=== PATIENT | male | born 1960 ===

== ENCOUNTER 2022-12-23 02:43 | Emergency (ER) | payer MEDICAID ==
[~2022-12-23] VITALS: Ht 170.2 cm; Wt 79.4 kg
[2022-12-23] MEDS ORDERED: CLIN300C8 PO (03:23)
[2022-12-23] MEDS ORDERED: ACET-1158 PO (03:23)
[2022-12-23] MEDS ORDERED: CEPH-510 PO (03:23)
[2022-12-23] MEDS ORDERED: cefTRIAXone SOD 1,000 MG VL IM ONE (03:30)
[2022-12-23 03:40] VITALS: BP 142/91
== END 2022-12-23 03:50 | disposition home or self-care (01) ==
LOC: ER 02:43
DX: L03.011 Cellulitis of right finger (principal); Z88.6 Allergy status to analgesic agent; Z88.1 Allergy status to other antibiotic agents
CPT/HCPCS: 96372; 99283; J0696

== ENCOUNTER 2025-03-03 16:00 | Emergency (ER) | payer MEDICAID, SELFPAY ==
[~2025-03-03] VITALS: Ht 167.6 cm; Wt 72.7 kg
[~2025-03-03 16:00] MED LIST: ACET500T58 PO; CEPH-510 PO; CLIN1CAP70 PO
[2025-03-03 16:49] LABS: Hematocrit 40.7 % (41.0-53.0); Hemoglobin 14.0 g/dL (13.5-17.5); Mean Corpuscular Hemoglobin 31.1 pg (28.0-32.0); Mean Corpuscular Volume 90.3 fL (80.0-100.0); Nucleated Red Blood Cells % 0.2 %
[2025-03-03 17:00] LABS: Alanine Aminotransferase 12 U/L (7-40); Alkaline Phosphatase 59 U/L (46-116); Calcium 9.0 mg/dL (8.7-10.4)
[2025-03-03 17:01] LABS: Albumin 4.2 g/dL (3.2-4.8); Anion Gap 9 (5-15); BUN/Creatinine Ratio 13.8 (10.0-20.0); Bilirubin, Total 0.6 mg/dL (0.2-1.0); Blood Urea Nitrogen 13 mg/dL (9-23); Carbon Dioxide 24 mmol/L (20-31); Glucose 87 mg/dL (74-106); Lipase 43 U/L (12-53); Potassium 4.1 mmol/L (3.5-5.1); Sodium 140 mmol/L (136-145); Total Protein 6.2 g/dL (5.7-8.2)
[2025-03-03 17:02] LABS: Chloride 107 mmol/L (98-107)
[2025-03-03] MEDS: ONDANSETRON HCL 4 MG/2 ML VIAL IV ONE (18:25)
[2025-03-03] MEDS: SODIUM CHLORIDE 0.9% 1,000 ML IV ONE (18:26)
[2025-03-03 20:54] LABS: Urine Protein, UAD TRACE (Negative)
--- NOTE | 2025-03-03 21:10 | ED.PDOC ---
History of Present Illness HPI Comments This patient is a 64-year-old male who was brought in by ambulance due to concerns of overdose event that occurred last night. Patient states that he usually takes trazodone, but wanted to get a good night sleep and therefore, took 20 pills. Patient arrives slightly confused with a general ill feeling, but patient does not look toxic or poisoned. Vital signs were stable on arrival. Chief Complaint: Overdose Time Seen by MD: 16:00 Primary Care Provider: DR. CHUNG Reviewed Notes: Nurses Notes, Transitional Care Liaison Notes Allergies: Coded Allergies: NO KNOWN ALLERGIES (Unverified , 12/23/22) Home Meds Active Scripts Acetaminophen (Acetaminophen) 500 Mg Tab, 500 MG PO QIDP, #30 TAB 0 Refills Prov:ABIODUN DUBON 12/23/22 Clindamycin Hcl (Clindamycin Hcl) 300 Mg Cap, 1 CAP PO TID for 7 Days, #21 CAP 0 Refills Prov:ABIODUN DUBON 12/23/22 Cephalexin ( Keflex 500) 500 Mg Cap, 1 CAP PO BID for 7 Days, #14 CAP 0 Refills Prov:ABIODUN DUBON 12/23/22 Information Source: Patient, Emergency Med Personnel Mode of Arrival: EMS Severity: Mild Timing: Hours Duration: Since onset Prehospital treatment: None Past Medical History PAST MEDICAL HISTORY: Anxiety, Thyroid Surgical History: Denies all surgeries Family History Family History: Unknown Social History Smoker: Non-Smoker Alcohol: Denies ETOH Use Drugs: Denies Drug Use Lives In: Home Constitutional: reports: others (Nonspecific general unease); denies: chills, diaphoresis, fatigue, fever, malaise, sweats, weakness EENTM: denies: blurred vision, double vision, ear bleeding, ear discharge, ear drainage, ear pain, ear ringing, eye pain, eye redness, hearing loss, mouth pain, mouth swelling, nasal discharge, nose bleeding, nose congestion, nose pain, photophobia, tearing, throat pain, throat swelling, voice changes, others Respiratory: denies: cough, hemoptysis, orthopnea, SOB at rest, shortness of breath, SOB with excertion, stridor, wheezing, others Cardiovascular: denies: chest pain, dizzy spells, diaphoresis, Dyspnea on exertion, edema, irregular heart beat, left arm pain, lightheadedness, palpitations, PND, syncope, others Gastrointestinal: denies: abdomen distended, abdominal pain, blood streaked bowels, constipated, diarrhea, dysphagia, difficulty swallowing, hematemesis, melena, nausea, poor appetite, poor fluid intake, rectal bleeding, rectal pain, vomiting, others Genitourinary: denies: burning, dysuria, flank pain, frequency, hematuria, incontinence, penile discharge, penile sore, pain, testicle pain, testicle swelling, urgency, others Neurological: denies: dizziness, fainting, headache, left sided numbness, left sided weakness, numbness, paresthesia, pre-existing deficit, right sided numbness, right sided weakness, seizure, speech problems, tingling, tremors, weakness, others Musculoskeletal: denies: back pain, gout, joint pain, joint swelling, muscle pain, muscle stiffness, neck pain, others Integumetry: denies: bruises, change in color, change in hair/nails, dryness, laceration, lesions, lumps, rash, wounds, others Allergic/Immunocompromised: denies: Difficulty Healing, Frequent Infections, Hives, Itching, others Hematologic/Lymphatic: denies: anemia, blood clots, easy bleeding, easy bruising, swollen glands, others Endocrine: denies: excessive hunger, excessive sweating, excessive thirst, excessive urination, flushing, intolerance to cold, intolerance to heat, unexplained weight gain, unexplained weight loss, others Psychiatric: denies: anxiety, bipolar disorder, depression, hopeless, panic disorder, schizophrenia, sleepless, suicidal, others Physical Exam General Appearance: Mild Distress (Patient states general mild a knees. Patient does not look toxic. Patient does not appear altered.), Normal HEENT: Normal ENT Inspection, Pharynx Normal, TMs Normal Neck: Full Range of Motion, Non-Tender, Normal, Normal Inspection Respiratory: Chest Non-Tender, Lungs Clear, No Accessory Muscle Use, No Respiratory Distress, Normal Breath Sounds Cardiovascular: No Edema, No JVD, No Murmur, No Gallop, Normal Peripheral Pulses, Regular Rate/Rhythm Breast Exam: Deferred Gastrointestinal: No Organomegaly, Non Tender, No Pulsatile Mass, Normal Bowel Sounds, Soft Genitalia: Deferred Pelvic: Deferred Rectal: Deferred Extremities: No calf tenderness, Normal capillary refill, Normal inspection, Normal range of motion, Non-tender, No pedal edema Neurologic: Alert, No Motor Deficits, Normal Affect, Normal Mood, No Sensory Deficits Cerebellar Function: Normal Reflexes: Normal Skin: Dry, Normal Color, Warm Lymphatic: No Adenopathy Was a procedure done? Was a procedure done?: No Differential Dx Considerations may include: Accidental prescription drug overdose X-Ray, Labs, Meds, VS Vital Signs Date Time Temp Pulse Resp B/P (MAP) Pulse Ox O2 Delivery O2 Flow Rate FiO2 03/03/25 16:13 72 03/03/25 16:04 98.4 76 16 117/71 97 98.4 Lab Test 03/03/25 20:10 03/03/25 16:24 Range/Units Urine Color Yellow Yellow Urine Clarity Clear Clear Urine pH 6.0 5.0-9.0 Urine Specific [place] 1.022 1.001-1.035 Urine Protein Trace H Negative Urine Ketones 1+ H Negative Urine Blood Negative Negative /uL Urine Nitrite Negative Negative Urine Bilirubin Negative Negative Urine Urobilinogen Normal Negative mg/dL Urine Leukocyte Esterase Negative Negative /uL Urine RBC 1 0 - 3 /hpf Urine Microscopic WBC 2 0-3 /HPF Urine Squamous Epithelial Cells None seen <5 /hpf Urine Bacteria None seen None Seen /hpf Urine Mucus Few None Seen Urine Glucose Normal Normal mg/dL White Blood Count 6.3 4.4-10.8 10^3/uL Red Blood Count 4.50 4.5-5.90 10^6/uL Hemoglobin 14.0 13.5-17.5 g/dL Hematocrit 40.7 L 41.0-53.0 % Mean Corpuscular Volume 90.3 80.0-100.0 fL Mean Corpuscular Hemoglobin 31.1 28.0-32.0 pg Mean Corpuscular Hemoglobin Concent 34.4 32.0-36.0 g/dL Red Cell Distribution Width 14.1 11.8-14.3 % Platelet Count 237 140-450 10^3/uL Mean Platelet Volume 6.9 6.9-10.8 fL Neutrophils (%) (Auto) 59.4 37.0-80.0 % Lymphocytes (%) (Auto) 32.2 10.0-50.0 % Monocytes (%) (Auto) 7.2 0.0-12.0 % Eosinophils (%) (Auto) 0.3 0.0-7.0 % Basophils (%) (Auto) 0.9 0.0-2.0 % Neutrophils # (Auto) 3.8 1.6-8.6 10 ^3/uL Lymphocytes # (Auto) 2.0 0.4-5.4 10 ^3/uL Monocytes # (Auto) 0.5 0-1.3 10 ^3/uL Eosinophils # (Auto) 0 0-0.8 10 ^3/uL Basophils # (Auto) 0.1 0-0.2 10 ^3/uL Nucleated Red Blood Cells 0.2 % Sodium Level 140 136-145 mmol/L Potassium Level 4.1 3.5-5.1 mmol/L Chloride Level 107 98-107 mmol/L Carbon Dioxide Level 24 20-31 mmol/L Anion Gap 9 5-15 Blood Urea Nitrogen 13 9-23 mg/dL Creatinine 0.94 0.700-1.30 mg/dL Glomerular Filtration Rate Calc 91 >90 mL/min BUN/Creatinine Ratio 13.8 10.0-20.0 Serum Glucose 87 74-106 mg/dL Calcium Level 9.0 8.7-10.4 mg/dL Total Bilirubin 0.6 0.2-1.0 mg/dL Aspartate Amino Transferase (AST) 16 13-40 U/L Alanine Aminotransferase (ALT) 12 7-40 U/L Alkaline Phosphatase 59 46-116 U/L Troponin I High Sensitivity 4 </=54 ng/L Total Protein 6.2 5.7-8.2 g/dL Albumin 4.2 3.2-4.8 g/dL Lipase 43 12-53 U/L Current Medications Medications (Trade) Dose Ordered Sig/Ervin Route Start Time Stop Time Status Last Admin Sodium Chloride 1,000 ml @ 250 mls/hr Q4H ONCE IV 03/03/25 16:15 03/03/25 20:14 DC 03/03/25 18:26 Ondansetron HCl (Zofran) 4 mg ONCE ONCE IV 03/03/25 16:15 03/03/25 16:16 DC 03/03/25 18:25 X-Ray, Labs, Meds, VS Comment All studies performed the ED were evaluated by me personally. Serum studies were unremarkable for any systemic concerns. Patient remained in the ED for 5 hours for visual management and after spending an unremarkable 5 hours the ED, patient will be discharged home. Patient has been advised to use medication as directed by the managing provider. Time of 1ST Reevaluation: 21:08 Reevaluation 1ST: Improved Consultation: PCP Patient Education/Counseling: Diagnosis, Treatment Family Education/Counseling: Diagnosis, Treatment SEPSIS Sepsis Screen Date sepsis recognized/suspect: Mar 03, 2025 Time Sepsis recognized/suspect: 1604 Recent Procedure: No On Antibiotic Therapy: No Respiratory Rate >20: No Heart Rate >90: No Temp<36 C (96.8 F) or >38.3 C: No SBP <90 or MAP <65 mmHG: No New Acute Mental Status Change: No Is the patient on CPAP, BIPAP,: No Physician Orders Electrocardigram (03/03/25 16:05) Heplock Iv (03/03/25 ) Vital Signs Date Time Temp Pulse Resp B/P (MAP) Pulse Ox O2 Delivery O2 Flow Rate FiO2 03/03/25 16:13 72 03/03/25 16:04 98.4 76 16 117/71 97 98.4 Laboratory Tests Test 03/03/25 16:24 White Blood Count 6.3 10^3/uL (4.4-10.8) Medications Medications Dose Ordered Sig/Ervin Route Start Time Stop Time Status Last Admin Dose Admin Ondansetron HCl 4 mg ONCE ONCE IV 03/03/25 16:15 03/03/25 16:16 DC 03/03/25 18:25 Sodium Chloride 1,000 ml @ 250 mls/hr Q4H ONCE IV 03/03/25 16:15 03/03/25 20:14 DC 03/03/25 18:26 Departure 1 Departure Time of Disposition: 21:09 Impression: Primary Impression: Medication overdose Disposition: 01 HOME / SELF CARE / HOMELESS Condition: Stable Additional Instructions: Advise utilizing medications as directed moving forward. Discharged With: Self, Friend Critical Care Note Critical Care Time?: No Stability Stability form required: No Heart Score Heart Score: Heart Score Response (Comments) Value History Slightly Suspicious 0 EKG Repolarization Disturb 1 Age 45-64 1 Risk Factors No known risk factors 0 Troponin Normal limit 0 Total 2 DONTE NIXON PAC Mar 03, 2025 21:10
[2025-03-03 21:15] VITALS: BP 127/78; PULSE 68; RESP 14; TEMP 98; O2SAT 98
--- NOTE | 2025-03-06 08:33 | ECG ---
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
== END 2025-03-03 21:41 | disposition home or self-care (01) ==
LOC: EDBD 16:00 → ER 16:00
DX: T43.211A Poisoning by selective serotonin and norepinephrine reuptake inhibitors, accidental (unintentional), initial encounter (principal); F41.9 Anxiety disorder, unspecified; Z79.899 Other long term (current) drug therapy; Y92.89 Other specified places as the place of occurrence of the external cause
CPT/HCPCS: 36415; 80053; 81001; 83690; 84484; 85025; 93005; 96361; 96374; 99284; J2405; J7030

== ENCOUNTER 2025-03-25 17:18 | Emergency (ER) | payer SELFPAY ==
[~2025-03-25] VITALS: Ht 167.6 cm; Wt 69.1 kg
--- NOTE | 2025-03-25 18:46 | ED.PDOC ---
Psychiatric HPI Comments 64-year-old male who came to ER for mental health issues. Patient denies any medical problems. States he has been feeling very anxious, depressed and stress due to family problems. States he has been unable to sleep for the past 2 weeks. He feels very tired, and has been having thoughts of harming himself. Possibly by overdose. Denies taking any other drugs. Chief Complaint: Mental Health Time Seen by MD: 18:45 Primary Care Provider: DR. CHUNG Reviewed Notes: Nurses Notes Information Source: Patient Mode of Arrival: Ambulatory Severity: Unable to Care for Self, Unable to Control Self Severity of Pain: Moderate Severity of Mental Status: Moderate Severity of Symptoms: Moderate Timing: Days Duration: Intermittent Presents with: Depression, Anxiety, Unclear Thinking, Suicidal Ideation Circumstance: Medical Clearance Current substance abuse: None Stressors: None History of: Depression, Anxiety Associated signs and symptoms: Depression, Hopeless, Anxiety, Confusion Past Medical History PAST MEDICAL HISTORY: Anxiety, Depression, Thyroid Surgical History: Denies all surgeries Family History Family History: Unknown Social History Smoker: Non-Smoker Alcohol: Denies ETOH Use Drugs: Denies Drug Use Lives In: Home Constitutional: denies: chills, diaphoresis, fatigue, fever, malaise, sweats, weakness, others EENTM: denies: blurred vision, double vision, ear bleeding, ear discharge, ear drainage, ear pain, ear ringing, eye pain, eye redness, hearing loss, mouth pain, mouth swelling, nasal discharge, nose bleeding, nose congestion, nose pain, photophobia, tearing, throat pain, throat swelling, voice changes, others Respiratory: denies: cough, hemoptysis, orthopnea, SOB at rest, shortness of breath, SOB with excertion, stridor, wheezing, others Cardiovascular: denies: chest pain, dizzy spells, diaphoresis, Dyspnea on exertion, edema, irregular heart beat, left arm pain, lightheadedness, palpitations, PND, syncope, others Gastrointestinal: denies: abdomen distended, abdominal pain, blood streaked bowels, constipated, diarrhea, dysphagia, difficulty swallowing, hematemesis, melena, nausea, poor appetite, poor fluid intake, rectal bleeding, rectal pain, vomiting, others Genitourinary: denies: burning, dysuria, flank pain, frequency, hematuria, incontinence, penile discharge, penile sore, pain, testicle pain, testicle swelling, urgency, others Neurological: denies: dizziness, fainting, headache, left sided numbness, left sided weakness, numbness, paresthesia, pre-existing deficit, right sided numbne ss, right sided weakness, seizure, speech problems, tingling, tremors, weakness, others Musculoskeletal: denies: back pain, gout, joint pain, joint swelling, muscle pain, muscle stiffness, neck pain, others Integumetry: denies: bruises, change in color, change in hair/nails, dryness, laceration, lesions, lumps, rash, wounds, others Allergic/Immunocompromised: denies: Difficulty Healing, Frequent Infections, Hives, Itching, others Hematologic/Lymphatic: denies: anemia, blood clots, easy bleeding, easy bruising, swollen glands, others Endocrine: denies: excessive hunger, excessive sweating, excessive thirst, excessive urination, flushing, intolerance to cold, intolerance to heat, unexplained weight gain, unexplained weight loss, others Psychiatric: reports: anxiety, depression, panic disorder, sleepless, suicidal; denies: bipolar disorder, hopeless, schizophrenia, others Physical Exam General Appearance: No Apparent Distress, Normal HEENT: Normal ENT Inspection, Pharynx Normal, TMs Normal Neck: Full Range of Motion, Non-Tender, Normal, Normal Inspection Respiratory: Chest Non-Tender, Lungs Clear, No Accessory Muscle Use, No Respiratory Distress, Normal Breath Sounds Cardiovascular: No Edema, No JVD, No Murmur, No Gallop, Normal Peripheral Pulses, Regular Rate/Rhythm Breast Exam: Deferred Gastrointestinal: No Organomegaly, Non Tender, No Pulsatile Mass, Normal Bowel Sounds, Soft Genitalia: Deferred Pelvic: Deferred Rectal: Deferred Extremities: No calf tenderness, Normal capillary refill, Normal inspection, Normal range of motion, Non-tender, No pedal edema Musculoskeletal : Apperance: Normal Neurologic: 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 Was a procedure done?: No Psych Differential Dx Psych. Differential Dx: Anxiety, Bipolar Disorder, Depression, Hopeless, Panic Disorder, Schizoprenia, Suicidal Suicidal Differential Dx: Anxiety, Depression, Panic Disorder X-Ray, Labs, Meds, VS Vital Signs Date Time Temp Pulse Resp B/P (MAP) Pulse Ox O2 Delivery O2 Flow Rate FiO2 03/25/25 17:20 98.8 100 18 116/64 97 98.8 Lab Test 03/25/25 18:49 Range/Units White Blood Count 9.2 4.4-10.8 10^3/uL Red Blood Count 4.78 4.5-5.90 10^6/uL Hemoglobin 14.9 13.5-17.5 g/dL Hematocrit 43.6 41.0-53.0 % Mean Corpuscular Volume 91.3 80.0-100.0 fL Mean Corpuscular Hemoglobin 31.2 28.0-32.0 pg Mean Corpuscular Hemoglobin Concent 34.1 32.0-36.0 g/dL Red Cell Distribution Width 14.4 H 11.8-14.3 % Platelet Count 251 140-450 10^3/uL Mean Platelet Volume 6.5 L 6.9-10.8 fL Neutrophils (%) (Auto) 73.4 37.0-80.0 % Lymphocytes (%) (Auto) 16.6 10.0-50.0 % Monocytes (%) (Auto) 9.0 0.0-12.0 % Eosinophils (%) (Auto) 0.4 0.0-7.0 % Basophils (%) (Auto) 0.6 0.0-2.0 % Neutrophils # (Auto) 6.8 1.6-8.6 10 ^3/uL Lymphocytes # (Auto) 1.5 0.4-5.4 10 ^3/uL Monocytes # (Auto) 0.8 0-1.3 10 ^3/uL Eosinophils # (Auto) 0 0-0.8 10 ^3/uL Basophils # (Auto) 0.1 0-0.2 10 ^3/uL Nucleated Red Blood Cells 0.0 % Sodium Level 135 L 136-145 mmol/L Potassium Level 3.0 L 3.5-5.1 mmol/L Chloride Level 97 L 98-107 mmol/L Carbon Dioxide Level 28 20-31 mmol/L Anion Gap 10 5-15 Blood Urea Nitrogen 15 9-23 mg/dL Creatinine 1.13 0.700-1.30 mg/dL Glomerular Filtration Rate Calc 73 >90 mL/min BUN/Creatinine Ratio 13.3 10.0-20.0 Serum Glucose 107 H 74-106 mg/dL Calcium Level 9.3 8.7-10.4 mg/dL Salicylates Level < 3.0 -30 mg/dL Acetaminophen Level < 2.0 L 10.0-20.0 UG/ML Time of 1ST Reevaluation: 18:42 Reevaluation 1ST: Unchanged Time of 2ND Reevaluation: 22:14 Reevaluation 2ND: Unchanged Patient Education/Counseling: Diagnosis, Treatment Family Education/Counseling: No Family Present Comments Patient reports having anxiety restlessness, insomnia, then he expanded a complaints to possibly wanting to hurt himself with suicidal ideations but without any plans or specifics. He states that he does not have any mental history except for more than a decade ago when he underwent a divorce. Patient has been resting comfortably for cooperatively nonaggressive and not agitated. His medical workup is unremarkable other than hypokalemia. I have order potassium replacement for him. He is stable to receive tele psych evaluation. We will continue to monitor him until he is assessed by tele psych and we received further recommendations. Departure 1 Departure Time of Disposition: 22:17 Impression: Primary Impression: Suicidal ideation Disposition: 30 STILL A PATIENT Condition: Fair Critical Care Note Critical Care Time?: Yes (55 min-critical care time only) Critical care comment: Due to concerns for patients condition deteriorating, the care required my highest level of attention and readiness to intervene. I assessed the patient, reviewed the medical records, ordered the appropriate tests and treatments, then reassessed for results and responsiveness. I communicated with medical personnel and consultants and formulated a plan of care. Total critical care time excludes any procedures Stability Stability form required: No Heart Score Heart Score: Heart Score Response (Comments) Value History N/A 0 EKG N/A 0 Age N/A 0 Risk Factors N/A 0 Troponin N/A 0 Total 0 I personally scribed for REMA RAVI MD ([email or web address]) on 03/25/25 at 18:46. Electronically submitted by Morgan Cooley ([email or web address]). REMA RAVI MD Mar 25, 2025 18:46
[2025-03-25 19:05] LABS: Hematocrit 43.6 % (41.0-53.0); Hemoglobin 14.9 g/dL (13.5-17.5); Mean Corpuscular Hemoglobin 31.2 pg (28.0-32.0); Mean Corpuscular Volume 91.3 fL (80.0-100.0); Nucleated Red Blood Cells % 0.0 %
[2025-03-25 19:12] LABS: Calcium 9.3 mg/dL (8.7-10.4)
[2025-03-25 19:13] LABS: Anion Gap 10 (5-15); Carbon Dioxide 28 mmol/L (20-31)
[2025-03-25 19:17] LABS: BUN/Creatinine Ratio 13.3 (10.0-20.0); Blood Urea Nitrogen 15 mg/dL (9-23)
[2025-03-25 19:19] LABS: Acetaminophen < 2.0 UG/ML (10.0-20.0); Chloride 97 mmol/L (98-107); Glucose 107 mg/dL (74-106); Potassium 3.0 mmol/L (3.5-5.1); Salicylate < 3.0 mg/dL (-30); Sodium 135 mmol/L (136-145)
[2025-03-25] MEDS ORDERED: POTASSIUM CHL 20 Meq TABLET PO ONE (22:15)
--- NOTE | 2025-03-26 02:48 | DVHINCON2 ---
Date of Service if different f: Mar 26, 2025 Time of Service: 02:48 Consult Consult Note PSYCHIATRY ED NEW CONSULT HPI: 64 yo pt with PPH of depression and anxiety presents to ED BIB son for safety, psychiatric stabilization, and possible med initiation/optimization in setting of depression, anxiety, and passive SI. Psychiatry consulted for safety evaluation and recommendations in context of current presentation Pt reports over past several weeks experiencing worsening depressed mood, hopelessness/helplessness, negative thoughts, isolation/withdrawn, loss of interest, decreased energy, poor sleep/appetite, amotivation, and anxiety symptoms to include excessive worry, rumination, restlessness, racing/intrusive thoughts, feeling tensed and "overwhelmed" and some irritability. Also intermittent fleeting SI over past several days with no plan/intent resulting in some interference with daily functioning. 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 Denies HI/AVH/paranoia/catatonic/perceptual disturbances. No overt manic, psychotic, cognitive, dissociative phenomena, panic, OCD, PTSD, or somatic symptoms noted Does not have active outpt MH services established at this time although has sought MH services in remote past. 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 Denies FH of psych hospitalizations, suicide attempts, or completed suicides No acute medical/chronic pain issues, hx of seizures/TBI, or recent head injuries, NKDA Denies hx of SI/SIB/SA/PSG or prior psych hospitalizations/5150 holds. Denies history of violence, aggression, or assaultive behaviors. Denies recent hx of impulsivity, attention seeking behaviors, anger outbursts, emotional dysregulation, mood reactivity, or engaging in risky/reckless behaviors. Denies any legal problems. Does not have access to firearms MSE: General Appearance/Behavior: Alert/awake; appears stated age, fair grooming/hygiene; calm/polite and cooperative, fair eye contact, no PMA/PMR Speech: coherent, rrr Thought Process: L/L/GD Thought Content: Abnormal Thoughts/Perceptions: denies dissociative symptoms Homicidality / Violent Thoughts: adamantly denies HI Suicidality: + SI Hallucinations: denies AVTH Delusions: denies paranoia, persecutory, or grandiose delusions Obsessions /compulsions: None Judgment/Insight: fair/fair Mood & Affect: "depressed" with mood-congruent, somewhat restricted/appropriate Orientation: oriented x 3 Attention/Concentration: appears intact Cognition: grossly intact Assessment: 64 yo pt with PPH of depression and anxiety presents to ED BIB son for safety, psychiatric stabilization, and possible med initiation/optimization in setting of depression, anxiety, and passive SI Pt currently expressing some SI in setting of recent acute life stressors (see hpi) and untreated MDE, Limited protective factors presently. Not on any psychotropics which may be contributing to current symptoms. No outpt MH services at present. Pt agrees to talk with staff instead of acting on any suicidal feelings while in ED. Pt medically cleared in ED Acute safety risk remains slightly elevated and is appropriate for inpatient psychiatric admission for further safety, psychiatric stabilization, and possible medication initiation. Pt willing to transfer to inpt psych facility voluntarily. Consider 5150 hold for DTS ONLY if needed for transfer or if no voluntary beds are available Primary Diagnosis: Major Depressive disorder, moderate, w/o PF Recommend VOL transfer to inpt psych facility for higher level of care 1:1 sitter is recommended Maintain suicide precautions Defer any psychotropic med initiation to accepting inpt psych facility may benefit from SSRI tx initiation w/wo Mirtazapine If patient later refuses voluntary hospitalization/ requests to be discharged from ED prior to transfer, please reconsult telepsych services to evaluate for 5150 DTS hold Pt verbalized understanding and is receptive to above tx plan This case was discussed with ED nurse/provider and all parties in agreement with above tx plan Devonte Guevara MD Plan discussed with: Patient DEVONTE GUEVARA MD Mar 26, 2025 02:48
[2025-03-26 09:36] VITALS: BP 124/94; PULSE 85; RESP 16; TEMP 97.8; O2SAT 97
== END 2025-03-26 10:16 | disposition left against medical advice (07) ==
LOC: ER 17:18
DX: R45.851 Suicidal ideations (principal); F41.9 Anxiety disorder, unspecified; F32.A Depression, unspecified
CPT/HCPCS: 36415; 80048; 80329; 85025